=== PATIENT | female | born 1960 | race Caucasian/White ===

== ENCOUNTER 2019-03-04 11:36 | Emergency (ER) | payer MEDICAID ==
[~2019-03-04] VITALS: Ht 154.9 cm; Wt 64.7 kg
[2019-03-04 11:40] VITALS: Ht 154.9 cm; Wt 64.7 kg
[2019-03-04] MEDS ORDERED: KETOROLAC 30 MG INJ IM STA (12:48)
[2019-03-04] MEDS ORDERED: DEXAMETHASONE 10 MG/ML 1 ML INJ IM ONE (13:00)
--- NOTE | 2019-03-04 13:05 | ERD ---
ER Documentation Chief Complaint Chief Complaint BILATERAL KNEE PAIN FOR 7 DAYS; NO INJURY OR TRAUMA. HPI 58-year-old female with no significant past medical history presenting to the emergency department complaining of bilateral knee pain constantly for the past 1 week. 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 She reports 10/10 pain. She has no pain at rest, only while walking. She took ibuprofen with some relief. She denies any changes in her urinary output or u rine color. She denies any calf pain. She denies any falls, head injury, loss of consciousness, or other symptoms or injuries at this time. ROS All systems reviewed and are negative except as per history of present illness. Medications Home Meds Active Scripts Diclofenac Sodium* (Voltaren* Gel) 1% -100 Gm Gel, 2 GM TOP QID for pain for 30 Days, #100 G Prov:BOSSMAN FISHER NP 03/06/19 Naproxen* (Naprosyn*) 500 Mg Tablet, 500 MG PO BID PRN for PAIN AND/OR INFLAMMATION, #30 TAB Prov:ADALID PLUMMER PA-C 03/04/19 Allergies Allergies: Coded Allergies: No Known Allergy (Unverified , 03/06/19) PMhx/Soc Medical and Surgical Hx: pt denies Medical Hx FmHx Family History: No diabetes Physical Exam Vitals Physical Exam Const: No acute distress Head: Atraumatic Eyes: Normal Conjunctiva ENT: Normal External Ears, Nose and Mouth. Neck: Full range of motion. No meningismus. Resp: Clear to auscultation bilaterally Cardio: Regular rate and rhythm, no murmurs Skin: No petechiae or rashes Back: No midline or flank tenderness Ext: Tenderness palpation over the right anterior knee. Range of motion is intact. Negative anterior and posterior drawer test of the right knee. There is no warmth or obvious joint effusion of the right knee. Examination of the left knee reveals no tenderness to palpation. Full range of motion of the left knee with negative anterior and posterior drawer test. There is no warmth or erythema or obvious deformity. Patient is neurovascularly intact distally to the bilateral lower extremities. Neur: Awake and alert Psych: Normal Mood and Affect Results 24 hrs Current Medications Medications Dose Sig/Aniceto Start Time Status Last (Trade) Ordered Route PRN Stop Time Admin Dose Reason Admin Ketorolac 30 mg ONCE STAT 03/04/19 DC 03/04/19 Tromethamine IM 12:48 13:06 (Toradol) 03/04/19 12:49 10 mg ONCE ONCE 03/04/19 DC 03/04/19 Dexamethasone IM 13:00 13:06 (Decadron) 03/04/19 13:03 Procedures/MDM 58-year-old female resenting with complaints of bilateral knee pain after walking on the stairstepper at the gym and doing a significant amount of walking secondary to her job. There were no falls or trauma and I do not believe that imaging is indicated at this time. I doubt rhabdomyolysis, significant ligamental or tendon injury, fracture, compartment syndrome, DVT, or other emergencies. Patient was administered Decadron and Toradol IM in the department and was improved on reevaluation. She was otherwise stable for discharge and further outpatient management with a prescription for naproxen. She was advised to have close orthopedic follow-up and return here immediately for any new or worsening or concerning symptoms. She was in agreement with the diagnosis, pl an, need for follow-up, return precautions. Departure Diagnosis: Primary Impression: Bilateral knee pain Chronicity: acute Qualified Codes: M25.561 - Pain in right knee; M25.562 - Pain in left knee Condition: Fair Additional Instructions: Muchas cristobal por [facility] para haas servicio. Esperamos que en haas visita a la olvin de emergencia haas problema medico haya sido solucionado y que se sienta mucho mejor. Para estar seguros que haas mejoria sigue en proceso, le pedimos el favor de hacer natividad roxanne de seguimiento medico con haas doctor primario en los proximos 2-4 rao. Lleve con usted estos documentos y las medicinas recetadas. Si fina sintomas empeoran, NO SE ESPERE, por favor regrese a olvin de emergencia INMEDIATAMENTE. En dmitriy que usted no tenga un mdico de atencin primaria: Llame al mdico o clnica comunitaria de referencia que aparece abajo cyril las horas de consultorio para hacer natividad roxanne para que le vean. CLINICAS: [facility] [phone] [facility] [phone] [address] [facility] [phone] [address] [facility] [phone] [place] [id number] [phone] [facility]. [phone] ADALID MINAYA PA-C Mar 04, 2019 13:05
[2019-03-04] MEDS ORDERED: NAPR-985 PO (13:19)
== END 2019-03-04 14:00 | disposition home or self-care (01) ==
LOC: FTE 11:36
DX: M25.561 Pain in right knee (principal); M25.562 Pain in left knee
CPT/HCPCS: 96372; J1100; J1885; Z7502

== ENCOUNTER 2019-03-06 10:43 | Emergency (ER) | payer MEDICAID ==
[~2019-03-06] VITALS: Ht 154.9 cm; Wt 64.0 kg
[~2019-03-06 10:43] MED LIST: NAPR-985 PO
[2019-03-06 10:48] VITALS: Ht 154.9 cm; Wt 64.0 kg
--- NOTE | 2019-03-06 11:37 | ERD ---
ER Documentation Chief Complaint Chief Complaint B/L KNEE PAIN X 10 DAYS HPI Is a 58-year-old female who presents emergency room with complaint of bilateral knee pain. Denies injury or history of arthritis. Was seen at this ER last week and provided with RX for Naprosyn that patient has not filled. She returns today because she is still having pain although she has not used ice, NSAIDS, or received physical therapy. 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 No chronic medical conditions. ROS All systems reviewed and are negative except as per history of present illness. Medications Home Meds Active Scripts Diclofenac Sodium* (Voltaren* Gel) 1% -100 Gm Gel, 2 GM TOP QID for pain for 30 Days, #100 G Prov:BOSSMAN FISHER NP 03/06/19 Naproxen* (Naprosyn*) 500 Mg Tablet, 500 MG PO BID PRN for PAIN AND/OR INFLAMMATION, #30 TAB Prov:ADALID PLUMMER PA-C 03/04/19 Allergies Allergies: Coded Allergies: No Known Allergy (Unverified , 03/06/19) PMhx/Soc Medical and Surgical Hx: pt denies Medical Hx, pt denies Surgical Hx History of Surgery: No Anesthesia Reaction: No Hx Neurological Disorder: No Hx Respiratory Disorders: No Hx Cardiac Disorders: No Hx Psychiatric Problems: No Hx Miscellaneous Medical Probl: No Hx Alcohol Use: No Hx Substance Use: No Hx Tobacco Use: No Smoking Status: Never smoker FmHx Family History: diabetes Physical Exam Vitals Vital Signs Date Temp Pulse Resp B/P (MAP) Pulse Ox O2 O2 Flow FiO2 Time Delivery Rate 03/06/19 97.4 73 18 115/62 98 Room Air 12:59 (79) 03/06/19 97.5 70 18 144/65 98 10:48 (91) Physical Exam Const: No acute distress Head: Atraumatic Eyes: Normal Conjunctiva ENT: Normal External Ears, Nose and Mouth. Neck: Full range of motion. No meningismus. Resp: Clear to auscultation bilaterally Cardio: Regular rate and rhythm, no murmurs Abd: Soft, non tender, non distended. Normal bowel sounds Skin: No petechiae or rashes Back: No midline or flank tenderness Ext: No cyanosis, or edema Lower Extremity Skin: No laceration, no bruising, no abrasions Compartments: Soft, no erythema, normothermic Motor: Full active range of motion hip/knee/ankle/foot Sensation: No paraesthesia Bones: Nontender pelvis/patella/head of fibula/proximal tibia/ malleoli/foot Joints: No effusion, patella midline, neg anterior drawer, neg posterior drawer, neg Fox, neg Kolby, neg Varus/Valgus Pulses/Perfusion: 2+ DP, Capillary refill < 2 seconds Gait: antalgic gait neg ROM: FROM Pasive/Active Neur: Awake and alert Psych: Normal Mood and Affect Results 24 hrs Current Medications Medications Dose Sig/Aniceto Start Time Status Last (Trade) Ordered Route PRN Stop Time Admin Dose Reason Admin Ibuprofen 600 mg ONCE ONCE 03/06/19 DC 03/06/19 (Motrin) PO 12:00 11:41 03/06/19 12:01 650 mg ONCE ONCE 03/06/19 DC 03/06/19 Acetaminophen PO 12:00 11:41 (Tylenol 03/06/19 12:01 Tab) Procedures/MDM PROCEDURES/MDM DIAGNOSTIC IMAGING: Read by radiologist. Left knee with an osteophyte extending off anterior superior patella A trace supra patellar joint effusion Otherwise unremarkable left knee series Right knee unremarkable right knee PROCEDURES: none -Medications: Ibuprofen, Tylenol Patient tolerated medication well with no adverse reactions. Patient reported improvement in pain. MDM: This is a 58 yo female patient who presents for the second time in 2 weeks with BL knee pain. Xrays do not reveal fracture, dislocation, bone spur, or arthritis. Epifanio wraps to BL knees applied with instructions to increase rest and work note provided. Patient instructed on RICE and use of NSAIDS including prescribed naproxen and Voltaren gel. Long discussion had with patient regarding follow-up with PMD and possible primary care work up for arthritis and physical therapy referral. This patient has been evaluated for knee pain. Radiological evaluation is negative for fracture, dislocation, or avulsion. The physical exam of the knee does not reveal ligamentous or meniscal injury at this time. There is no swelling in the joint. There is low suspicion for a septic joint as the patient is afebrile without recent illness, the joint is normothermic. No evidence of compartment syndrome, neurologic injury, vascular injury, open joint, open fracture, tendon laceration, or foreign body. DISPOSITION and PLAN: RX: Voltaren gel The patient has been discharge home to follow-up with community physician. Departure Diagnosis: Primary Impression: Knee pain Chronicity: chronic Laterality: bilateral Qualified Codes: M25.561 - Pain in right knee; M25.562 - Pain in left knee; G89.29 - Other chronic pain Condition: Stable BOSSMAN FISHER NP Mar 06, 2019 11:37
[2019-03-06] MEDS ORDERED: ACETAMINOPHEN 325 MG TAB PO ONE (12:00)
[2019-03-06] MEDS ORDERED: IBUPROFEN 600 MG TAB PO ONE (12:00)
[2019-03-06] MEDS ORDERED: DICL100G37 TOP (12:39)
[2019-03-06 12:59] VITALS: BP 115/62; PULSE 73; RESP 18
== END 2019-03-06 13:01 | disposition home or self-care (01) ==
LOC: FTE 10:43
DX: M25.561 Pain in right knee (principal); M25.562 Pain in left knee
CPT/HCPCS: 73562; Z7502; Z7610